=== PATIENT | female | born 1970 | race Caucasian/White ===

== ENCOUNTER 2021-03-10 12:32 | Outpatient (CLI) | payer BC | END 2021-03-10 12:33 | disposition home or self-care (01) | LOC: CSHMAMMO 12:32 | PROVIDERS: ATTEND Obstetrics & Gynecology | DX: R92.2 Inconclusive mammogram (principal) | CPT/HCPCS: G0279 ==

== ENCOUNTER 2022-04-18 05:29 | Day surgery (SDC) | payer BC ==
[2022-04-13 11:32] LABS: Hemoglobin 14.8 g/dL (12.0-15.5); Mean Corpuscular HGB CONC 35.8 g/dL (32.0-36.0); Mean Corpuscular Hemoglobin 34.4 pg (27.0-33.0); Mean Platelet Volume 11.1 fl (7.4-10.4); Platelet Count 293 10x3/uL (150-450); RBC Distribution Width 11.6 % (11.5-14.5); White Blood Cell (WBC) Count 4.8 10x3/uL (3.5-10.5)
[2022-04-13 11:37] LABS: BHCG - Serum Negative (NEGATIVE); Pregs Control Background? CLEAR/WHITE (CLR/WHITE); Pregs Control Bar Appear? YES (CONTROL BAR)
[2022-04-17 10:53] VITALS: BMI 29.9
[2022-04-18] MEDS ORDERED: Bupivacaine PF 0.5% 30 ML VIAL ONE (06:14)
[2022-04-18] MEDS ORDERED: EPINEPHrine 1 MG/ML AMP ONE (06:14)
[2022-04-18] MEDS ORDERED: Gabapentin 300 MG CAP ONE (06:17)
[2022-04-18] MEDS ORDERED: CeleCOXIB 100 MG CAP ONE (06:18)
[2022-04-18] MEDS ORDERED: Famotidine/PF 20 mg/2ml Vial ONE (06:18)
[2022-04-18] MEDS ORDERED: PROPOFOL 20 ML ONE (06:38)
[2022-04-18] MEDS ORDERED: Fentanyl 250 MCG/5 ML VIAL ONE (06:38)
[2022-04-18] MEDS ORDERED: Midazolam HCl 2 mg/2 ml Vial ONE (06:38)
[2022-04-18] MEDS ORDERED: Glycopyrrolate 0.2 MG/ML 5 ML SYRINGE ONE (06:39)
[2022-04-18] MEDS ORDERED: Lidocaine 2% PF 5 ML VIAL ONE (06:39)
[2022-04-18] MEDS ORDERED: Dexamethasone 4 mg/ml Vial ONE (06:39)
[2022-04-18] MEDS ORDERED: Rocuronium Bromide 10 MG/ML (10ML VIAL) ONE (06:39)
[2022-04-18] MEDS ORDERED: Ketorolac Tromethamine 30 MG/ML VIAL ONE (06:39)
[2022-04-18] MEDS ORDERED: Ondansetron PF 4 MG/2 ML Vial ONE (06:39)
[2022-04-18] MEDS ORDERED: CEFAZOLIN 2 GM VIAL ONE (06:54)
[2022-04-18] MEDS ORDERED: Fentanyl 100 MCG/2 ML VIAL ONE (09:04)
[2022-04-18] MEDS ORDERED: Meperidine HCl/PF 25 MG/ML VIAL ONE (09:41)
== END 2022-04-18 11:30 | disposition home or self-care (01) ==
LOC: CSHSDC 05:29
PROVIDERS: ATTEND Obstetrics & Gynecology
PROC: 0UT94ZZ Resection of Uterus, Percutaneous Endoscopic Approach (ICD-10-PCS; principal; 2022-04-18)
PROC: 0UT74ZZ Resection of Bilateral Fallopian Tubes, Percutaneous Endoscopic Approach (ICD-10-PCS; principal; 2022-04-18)
DX: D25.1 Intramural leiomyoma of uterus (principal); N73.6 Female pelvic peritoneal adhesions (postinfective); N94.6 Dysmenorrhea, unspecified; E03.9 Hypothyroidism, unspecified; Z79.899 Other long term (current) drug therapy; Z98.890 Other specified postprocedural states; Z20.822 Contact with and (suspected) exposure to COVID-19
CPT/HCPCS: 36415; 84703; 85027; 86850; 86900; 86901; 87811; 88307; J0171; J0690; J1100; J1885; J2001; J2175; J2250; J2405; J2704; J3010; S0020; S0028